=== PATIENT | male | born 1990 | race Two or more races ===

== ENCOUNTER 2022-10-11 23:21 | Emergency (ER) | payer BC, SELFPAY ==
[2022-10-11 23:31] VITALS: BP 137/92; PULSE 96; RESP 20; TEMP 36.8; O2SAT 97; BMI 33.1
[2022-10-12 00:36] VITALS: BP 153/89; PULSE 87; RESP 16; TEMP 36.6; O2SAT 98
--- NOTE | 2022-10-12 00:41 | ED.ALLEREA ---
HPI - Allergic Reaction General Chief complaint: Allergic Reaction Stated complaint: allergic reaction Time Seen by Provider: 10/12/22 00:01 Source: patient Mode of arrival: ambulatory Limitations: no limitations History of Present Illness HPI narrative: Patient comes to the ED c/p redness in the left lower extremity after using lidocaine ointment unlike before getting a tattoo. Patient states that approximately 12 hours after getting the tattoo, his skin started becoming erythematous, developing blisters. Patient states it is not itchy and it does not hurt. However, his skin does look inflamed. Denies any calf pain. Denies fever chills Related Data Previous Rx's Medication Instructions Recorded cephalexin 500 mg capsule 500 mg PO BID #13 caps 10/12/22 famotidine 20 mg tablet (Pepcid) 20 mg PO DAILY #4 tabs 10/12/22 prednisone 20 mg tablet 20 mg PO DAILY #4 tabs 10/12/22 Allergies Allergy/AdvReac Type Severity Reaction Status Date / Time No Known Allergies Allergy Verified 10/11/22 23:35 Review of Systems Review of Systems: Constitutional : No Weight loss, No Fever, No Chills, No Night Sweats, No Fatigue, No Malaise ENT/Mouth : No Hearing loss, No Ear Pain, No Nasal Congestion, No Sinus Pain, No Hoarseness, No sore throat, No Rhinorrhea, No Swallowing Difficulty Eyes: No Eye Pain, No Swelling, No Redness, No Foreign Body, No Discharge, No Vision Changes Cardiovascular : No Chest Pain, No SOB, No Dyspnea on Exertion, No Orthopnea, No Edema, No Palpitations Respiratory : No Cough, No Sputum, No Wheezing, No Smoke Exposure, No Dyspnea Gastrointestinal : No Nausea, No Vomiting, No Diarrhea, No Constipation, No abdominal Pain, No Hematochezia, No Melena Genitourinary : no irregular bleeding, No Dysuria, No Urinary Frequency, No Hematuria, No Urinary Incontinence, No Urgency, No Flank Pain, No Urinary Flow Changes, No Hesitancy Musculoskeletal : No joint pain, No Myalgias, No Joint Swelling Skin : Complaining of skin inflammation, allergic reaction versus infection Neuro : No Weakness, No Numbness, No Paresthesias, No Loss of Consciousness, No Dizziness, No Headache Psych : No Anxiety/Panic, No Depression, No SI/HI/AH/VH, No Social Issues, Heme/Lymph: No Bruising, No Bleeding,No Lymphadenopathy Endocrine : No Polyuria, No Polydipsia, No Temperature Intolerance [facility] Social History Social History Advance Directives: No Advance Directives Information Provided: No Physical Exam ED Vital Signs: Vital Signs - 24 hr 10/11/22 23:31 10/12/22 00:36 Temperature 98.2 F 97.9 F Pulse Rate 96 87 Respiratory Rate 20 16 Blood Pressure 137/92 H 153/89 H Pulse Oximetry 97 98 Oxygen Delivery Method Room Air Room Air BMI result Body Mass Index 33.1 Const Other: Appearance: Alert. Oriented X3. No acute distress. Eyes: Pupils equal, round and reactive to light. ENT: Pharynx normal. Neck: Normal inspection. Neck supple. No lymph nodes noted. No crepitus CVS: Normal heart rate and rhythm. Pulses normal. Normal S1 and S2 Respiratory: No respiratory distress. Breath sounds normal. No Wheezing. No rales Abdomen: Soft and nontender. No rigidity. No distention. Skin: Skin warm and dry. Skin on the left lower extremity is erythematous, not warm to touch, there are blisters present filled with clear fluid. No hives. Extremities: No lower extremity edema. No Lacerations. No Rash Neuro: Oriented X 3. No motor deficit. No sensory deficit. Moving all extremities. No slurred speech. CN 2 through 12 grossly intact Psych: calm, cooperative, normal affect Medical Decision Making Medical Decision Making MDM Narrative: -discussed with the patient that this could be an allergic reaction to lidocaine versus the ink of the tattoo., low suspicion of cellulitis but still possible. -in the emergency room patient was given p.o. prednisone, famotidine, diphenhydramine and keflex Discharge Plan Discharge Clinical Impression: Inflammation, skin Patient Disposition: Home, Self-Care Instructions: Dermatitis (ED) Additional Instructions: You could possibly have dermatitis versus an allergic reaction to the lidocaine cream or the ink versus an overlying skin infection. Please follow-up with your primary care physician tomorrow. If you have any worsening or new symptoms, please return to the emergency room or call 911 Prescriptions: New prednisone 20 mg tablet 20 mg PO DAILY Qty: 4 0RF famotidine [Pepcid] 20 mg tablet 20 mg PO DAILY Qty: 4 0RF cephalexin 500 mg capsule 500 mg PO BID Qty: 13 0RF
[2022-10-12] MEDS: cephALEXin 500 MG CAPSULE PO (01:06)
[2022-10-12] MEDS: predniSONE 20 MG TABLET 60 MG PO (01:06)
[2022-10-12] MEDS: Famotidine 20 MG TABLET PO (01:07)
[2022-10-12] MEDS: diphenhydrAMINE HCL 25 MG CAPSULE 50 MG PO (01:07)
== END 2022-10-12 01:20 | disposition home or self-care (01) ==
PROVIDERS: Emergency Provider Emergency Medicine
DX: L08.9 Local infection of the skin and subcutaneous tissue, unspecified (principal); R21 Rash and other nonspecific skin eruption
CPT/HCPCS: 99283; 99284

== ENCOUNTER 2023-07-16 12:57 | Outpatient (REF) | payer BC, SELFPAY ==
[2023-07-17 08:13] LABS: ~HepC Num1 0.24 S/CO (0.00-0.79); ~Hepatitis C Antibody Nonreactive (Nonreactive)
== END 2023-07-16 12:58 | disposition home or self-care (01) ==
LOC: HO.CHCLDS 12:57
PROVIDERS: Visit Provider Student in an Organized Health Care Education/Training Program
DX: Z00.00 Encounter for general adult medical examination without abnormal findings (principal)
CPT/HCPCS: 36415; 86803